=== PATIENT | male | born 1965 | race Caucasian/White ===

== ENCOUNTER 2016-07-02 21:28 | Emergency (ER) | payer SELFPAY ==
[~2016-07-02] VITALS: Ht 172.7 cm; Wt 104.5 kg
[2016-07-02] MEDS ORDERED: TETRACAINE 0.5% OPHTHALMIC SOLUTION 4 ML BTL OD ONE (21:55)
[2016-07-02] MEDS ORDERED: FLUORESCEIN (FLUOR-I-STRIPS) 1 MG STRIP OD ONE (21:55)
[2016-07-02] MEDS ORDERED: ED- HYDROcodone/ACETAMINOPHEN 5MG/325MG (NORCO) 6 TABLETS/BTL PO ONE (22:05)
[2016-07-02] MEDS ORDERED: ED- BACITRACIN/POLYMYXIN OPHTHALMIC OINT (AK-POLY-BAC) 3.5 GM TUBE OD ONE (22:05)
--- NOTE | 2016-07-02 22:30 | NUR ---
Unable to do visual accuity exam as patient unable to keep eye open, reported to DR. Abel
[2016-07-02] MEDS ORDERED: CYCLOPENTOLATE 2% OD ONE (22:35)
[2016-07-02] MEDS ORDERED: HYDROcodone/APAP 5 MG/325 MG (NORCO) TAB PO ONE (22:35)
[2016-07-02 23:04] VITALS: BP 152/76
== END 2016-07-02 23:04 | disposition home or self-care (01) ==
LOC: ED 21:31
DX: T15.01XA Foreign body in cornea, right eye, initial encounter (principal); W20.8XXA Other cause of strike by thrown, projected or falling object, initial encounter; Y93.89 Activity, other specified; Y92.9 Unspecified place or not applicable; Y99.0 Civilian activity done for income or pay
CPT/HCPCS: 65220; 99283

== ENCOUNTER → 2016-07-03 | Outpatient (CLI) | payer SELFPAY ==
[~2016-07-03] MED LIST: TETANUS & DIPHTHERIA TOXOIDS (Td) 0.5 ML (DECAVAC) VIAL IM ONE
== END ==
LOC: EUOP 09:11
PROVIDERS: ATTEND Ophthalmology
DX: Z23 Encounter for immunization (principal); T15.01XA Foreign body in cornea, right eye, initial encounter; X58.XXXA Exposure to other specified factors, initial encounter
CPT/HCPCS: 90471; 90714